=== PATIENT | female | born 1945 | race Caucasian/White ===

== ENCOUNTER 2017-05-15 18:57 | Emergency (ER) | payer MEDICARE, MEDICAID ==
[~2017-05-15] VITALS: Ht 154.9 cm; Wt 82.1 kg
[2017-05-15 20:07] LABS: BASOPHIL % 0.5 % (0-2); PLATELET COUNT 225 x10^3mcL (130-400); RED CELL DISTRIBUTION WIDTH 13.9 % (11.5-14.5)
[2017-05-15 20:32] LABS: CALCIUM 9.3 mg/dL (8.5-10.1); CARBON DIOXIDE 28.4 mmol/L (21-32); CHLORIDE SERUM 103 mmol/L (98-107); CREATININE SERUM 0.7 mg/dL (0.6-1.0); GFR1 > 60 mL/min; GLUCOSE SERUM 93 mg/dL (74-106); POTASSIUM SERUM 4.1 mmol/L (3.5-5.1); SODIUM SERUM 137 mmol/L (136-145)
[2017-05-15 20:38] LABS: ALBUMIN 3.8 g/dL (3.4-5.0); ALKALINE PHOSPHATASE 129 U/L (46-116); ALT/SGPT 21 U/L (14-59); AST/SGOT 11 U/L (15-37); BILIRUBIN TOTAL 0.5 mg/dL (0.20-1.00); TOTAL PROTEIN, SERUM 8.5 g/dL (6.4-8.2)
[2017-05-15 21:10] LABS: UA SPECIFIC GRAVITY <=1.005 (1.005-1.035); microscopic required? YES; urine erythrocyte NEGATIVE (NEGATIVE)
[2017-05-15 22:00] VITALS: BP 139/68
== END 2017-05-15 22:00 | disposition home or self-care (01) ==
LOC: ED 18:57
PROVIDERS: Emergency Medicine
DX: J45.909 Unspecified asthma, uncomplicated (principal); E78.5 Hyperlipidemia, unspecified; B34.9 Viral infection, unspecified; R09.02 Hypoxemia; G47.30 Sleep apnea, unspecified; I10 Essential (primary) hypertension; Z79.899 Other long term (current) drug therapy
CPT/HCPCS: 83880; J1885; J2930; J7030; J7620; Q0092

== ENCOUNTER 2017-08-12 20:03 | Inpatient (IN) | payer MEDICARE, MEDICAID ==
[~2017-08-12] VITALS: Ht 162.6 cm; Wt 79.5 kg
[2017-08-12 20:54] LABS: BASOPHIL % 0.4 % (0-2); PLATELET COUNT 209 x10^3mcL (130-400); RED CELL DISTRIBUTION WIDTH 14.3 % (11.5-14.5)
[2017-08-12 21:01] LABS: CALCIUM 9.2 mg/dL (8.5-10.1); CARBON DIOXIDE 24.4 mmol/L (21-32); CHLORIDE SERUM 103 mmol/L (98-107); CREATININE SERUM 0.9 mg/dL (0.6-1.0); GFR1 > 60 mL/min; GLUCOSE SERUM 99 mg/dL (74-106); POTASSIUM SERUM 4.1 mmol/L (3.5-5.1); SODIUM SERUM 139 mmol/L (136-145)
[2017-08-12 21:06] LABS: ALBUMIN 3.9 g/dL (3.4-5.0); ALKALINE PHOSPHATASE 105 U/L (46-116); ALT/SGPT 25 U/L (14-59); AST/SGOT 14 U/L (15-37); BILIRUBIN TOTAL 0.56 mg/dL (0.20-1.00); TOTAL PROTEIN, SERUM 8.3 g/dL (6.4-8.2)
[2017-08-12 23:24] VITALS: BP 151/113
[2017-08-12 23:27] VITALS: Ht 162.6 cm; Wt 79.5 kg
[2017-08-13 00:27] VITALS: BP 118/64
[2017-08-13 00:50] LABS: MAGNESIUM 2.2 mg/dL (1.8-2.4); PHOSPHOROUS 3.6 mg/dL (2.5-4.9)
[2017-08-13 01:00] LABS: T3 TOTAL 0.9 ng/mL
[2017-08-13 01:02] LABS: FREE T4 1.2 ng/dL (0.76-1.46); FREE THYROXINE INDEX 3.5 ug/dL (1.4-4.5); T4(THYROXINE) 9.9 ug/dL (4.7-13.3)
[2017-08-13 05:51] LABS: microscopic required? NO
[2017-08-13 06:04] LABS: UA SPECIFIC GRAVITY 1.025 (1.005-1.035); urine erythrocyte NEGATIVE (NEGATIVE)
[2017-08-13 06:10] VITALS: BP 114/63
[2017-08-13 06:12] LABS: AMPHETAMINE QUAL UR NONE DETECTED (NEG <=1000)
[2017-08-13 06:23] LABS: BASOPHIL % 0.3 % (0-2); PLATELET COUNT 184 x10^3mcL (130-400); RED CELL DISTRIBUTION WIDTH 14.2 % (11.5-14.5)
[2017-08-13 06:38] LABS: CALCIUM 8.7 mg/dL (8.5-10.1); CARBON DIOXIDE 22.7 mmol/L (21-32); CHLORIDE SERUM 107 mmol/L (98-107); CHOLESTEROL 180 mg/dL (<200); CHOLESTEROL/HDL RATIO 4.9; CREATININE SERUM 0.7 mg/dL (0.6-1.0); GFR1 > 60 mL/min; GLUCOSE SERUM 90 mg/dL (74-106); HDL CHOLESTEROL 37 mg/dL (40-60); MAGNESIUM 2.1 mg/dL (1.8-2.4); PHOSPHOROUS 3.7 mg/dL (2.5-4.9); POTASSIUM SERUM 4.4 mmol/L (3.5-5.1); SODIUM SERUM 140 mmol/L (136-145); TRIGLYCERIDES 80 mg/dL (<150)
[2017-08-13 09:09] VITALS: BP 114/62
[2017-08-13] MEDS ORDERED: DULERA1 AR3 INH (10:36)
[2017-08-13] MEDS ORDERED: LOSARTAN POTASS50 M1 PO (10:38)
[2017-08-13] MEDS ORDERED: SIMVASTATIN40 M1 PO (10:39)
[2017-08-13] MEDS ORDERED: PAROXETINE HCL20 M1 (10:40)
[2017-08-13 13:29] VITALS: BP 128/68
[2017-08-13 16:52] VITALS: BP 101/57
[2017-08-13 22:04] VITALS: BP 97/38
[2017-08-14 06:35] LABS: BASOPHIL % 0.5 % (0-2); PLATELET COUNT 188 x10^3mcL (130-400); RED CELL DISTRIBUTION WIDTH 14.1 % (11.5-14.5)
[2017-08-14 06:38] LABS: CALCIUM 8.8 mg/dL (8.5-10.1); CARBON DIOXIDE 26.7 mmol/L (21-32); CHLORIDE SERUM 109 mmol/L (98-107); CREATININE SERUM 0.8 mg/dL (0.6-1.0); GFR1 > 60 mL/min; GLUCOSE SERUM 97 mg/dL (74-106); POTASSIUM SERUM 4.5 mmol/L (3.5-5.1); SODIUM SERUM 141 mmol/L (136-145)
[2017-08-14 06:54] VITALS: BP 90/54
[2017-08-14 09:25] VITALS: BP 90/48
[2017-08-14] MEDS ORDERED: PROAIR HFA8.5 GM IH (12:24)
[2017-08-14] MEDS ORDERED: DULERA1 AR3 INH (12:29)
[2017-08-14] MEDS ORDERED: MOMETASONE INH (12:34)
[2017-08-14] MEDS ORDERED: [UNRECOGNIZED DRUG - OTHER] INH (12:34)
[2017-08-14] MEDS ORDERED: RANITIDINE HCL150 M1 PO (12:37)
[2017-08-14 13:37] VITALS: BP 90/48
[2017-08-14 13:50] VITALS: BP 102/61
== END 2017-08-14 14:44 | disposition home or self-care (01) | DRG 391 ==
LOC: ED 20:03 → DU 22:27
PROVIDERS: Emergency Medicine; Family Medicine
DX: K21.9 Gastro-esophageal reflux disease without esophagitis (principal); N17.0 Acute kidney failure with tubular necrosis; K44.9 Diaphragmatic hernia without obstruction or gangrene; G47.33 Obstructive sleep apnea (adult) (pediatric); I10 Essential (primary) hypertension; I08.3 Combined rheumatic disorders of mitral, aortic and tricuspid valves; F32.9 Major depressive disorder, single episode, unspecified; E78.5 Hyperlipidemia, unspecified; Z68.31 Body mass index [BMI] 31.0-31.9, adult
CPT/HCPCS: 83880; 84439; 85378; 94150; J2270; J2405; J3010; J7030; Q0092; Q9966; Q9967

== ENCOUNTER 2019-04-26 21:15 | Emergency (ER) | payer OTHER, MEDICAID ==
[~2019-04-26] VITALS: Ht 154.9 cm; Wt 83.9 kg
[~2019-04-26 21:15] MED LIST: DULERA1 AR3 INH; LOSARTAN POTASS50 M1 PO; MOMETASONE INH; PAROXETINE HCL20 M1; PROAIR HFA8.5 GM IH; RANITIDINE HCL150 M1 PO; SIMVASTATIN40 M1 PO; [UNRECOGNIZED DRUG - OTHER] INH
[2019-04-26 21:21] VITALS: Ht 154.9 cm; Wt 83.9 kg
[2019-04-26 21:56] LABS: BASOPHIL % 0.5 % (0-2); PLATELET COUNT 219 x10^3mcL (130-400); RED CELL DISTRIBUTION WIDTH 14.3 % (11.5-14.5)
[2019-04-26 21:59] LABS: microscopic required? NO
[2019-04-26 22:11] LABS: CALCIUM 8.8 mg/dL (8.5-10.1); CARBON DIOXIDE 28.1 mmol/L (21-32); CHLORIDE SERUM 104 mmol/L (98-107); GLUCOSE SERUM 95 mg/dL (74-106); POTASSIUM SERUM 4.4 mmol/L (3.5-5.1); SODIUM SERUM 138 mmol/L (136-145)
[2019-04-26 22:19] LABS: ALBUMIN 3.6 g/dL (3.4-5.0); ALKALINE PHOSPHATASE 113 U/L (46-116); ALT/SGPT 22 U/L (14-59); AST/SGOT 15 U/L (15-37); BILIRUBIN TOTAL 0.4 mg/dL (0.20-1.00); LIPASE 139 IU/L (73-393); TOTAL PROTEIN, SERUM 7.9 g/dL (6.4-8.2)
[2019-04-26 22:23] LABS: UA SPECIFIC GRAVITY <=1.005 (1.005-1.035); urine erythrocyte NEGATIVE (NEGATIVE)
[2019-04-26 23:36] VITALS: BP 137/65
== END 2019-04-26 23:36 | disposition home or self-care (01) ==
LOC: ED 21:15
PROVIDERS: Emergency Medicine
DX: R10.84 Generalized abdominal pain (principal); R51 Headache; R35.0 Frequency of micturition; R39.15 Urgency of urination; I10 Essential (primary) hypertension; E78.00 Pure hypercholesterolemia, unspecified; J45.909 Unspecified asthma, uncomplicated; Z98.890 Other specified postprocedural states
CPT/HCPCS: J1885; J2405; J7030

== ENCOUNTER 2019-06-12 14:24 | Emergency (ER) | payer OTHER, MEDICAID ==
[~2019-06-12] VITALS: Ht 160 cm; Wt 83.5 kg
[2019-06-12 14:29] VITALS: Ht 160 cm; Wt 83.5 kg
[2019-06-12 19:07] VITALS: BP 127/58
== END 2019-06-12 19:07 | disposition home or self-care (01) ==
LOC: ED 14:24
DX: S29.012A Strain of muscle and tendon of back wall of thorax, initial encounter (principal); R51 Headache; I10 Essential (primary) hypertension; J45.909 Unspecified asthma, uncomplicated; E78.00 Pure hypercholesterolemia, unspecified; W20.8XXA Other cause of strike by thrown, projected or falling object, initial encounter; Y93.89 Activity, other specified; Y92.89 Other specified places as the place of occurrence of the external cause; Y99.8 Other external cause status
CPT/HCPCS: 72072; J1885; J2405; J3010

== ENCOUNTER 2020-06-09 23:52 | Emergency (ER) | payer OTHER, MEDICAID, SELFPAY ==
[~2020-06-09] VITALS: Ht 165.1 cm; Wt 78.9 kg
[2020-06-09 23:56] VITALS: Ht 165.1 cm; Wt 78.9 kg
[2020-06-10 02:45] LABS: BASOPHIL % 0.4 % (0-2); PLATELET COUNT 169 x10^3mcL (130-400); RED CELL DISTRIBUTION WIDTH 14.2 % (11.5-14.5)
[2020-06-10 02:49] LABS: UA SPECIFIC GRAVITY <=1.005 (1.005-1.035); microscopic required? YES; urine erythrocyte NEGATIVE (NEGATIVE)
[2020-06-10 03:40] LABS: CALCIUM 8.8 mg/dL (8.5-10.1); CARBON DIOXIDE 26.5 mmol/L (21-32); CHLORIDE SERUM 100 mmol/L (98-107); CREATININE SERUM 0.9 mg/dL (0.6-1.0); GLUCOSE SERUM 104 mg/dL (74-106); POTASSIUM SERUM 3.4 mmol/L (3.5-5.1); SODIUM SERUM 137 mmol/L (136-145)
[2020-06-10 03:44] LABS: ALBUMIN 3.9 g/dL (3.4-5.0); ALKALINE PHOSPHATASE 111 U/L (46-116); ALT/SGPT 31 U/L (14-59); AST/SGOT 19 U/L (15-37); BILIRUBIN TOTAL 0.52 mg/dL (0.20-1.00); LIPASE 107 IU/L (73-393)
[2020-06-10 03:45] LABS: TOTAL PROTEIN, SERUM 8.4 g/dL (6.4-8.2)
[2020-06-10 04:25] VITALS: BP 138/70
== END 2020-06-10 04:25 | disposition home or self-care (01) ==
LOC: ED 23:52
PROVIDERS: Emergency Medicine
DX: K29.70 Gastritis, unspecified, without bleeding (principal); J18.1 Lobar pneumonia, unspecified organism; J45.909 Unspecified asthma, uncomplicated; E78.00 Pure hypercholesterolemia, unspecified; K21.9 Gastro-esophageal reflux disease without esophagitis; I10 Essential (primary) hypertension
CPT/HCPCS: J1885; J3490; J7030